=== PATIENT | male | born 1945 | race Caucasian/White ===

== ENCOUNTER 2017-09-12 23:33 | Inpatient (IN) | payer OTHER, BC ==
[~2017-09-12] VITALS: Ht 182.9 cm; Wt 117.2 kg
--- NOTE | ~2017-09-12 | EKG ---
[address] [address] ELECTROCARDIOGRAM REPORT Name: ALYSIAASHOK Room #: 243-P ADM IN M.R.#: [id number] Admission: 09/12/17 Attend Phys: Philippe Brizuela DO Discharge: Date of : 47 Report #: [id number] THIS REPORT FOR: //name// [facility] ED Test Date: 2017-09-13 Test Time: 09:39:55 Pat Name: ASHOK HATFIELD Department: Room: 243 P Gender: M Veterinary Assistant: KAREN : 1945 Requested By: Gilbert Kaplan Order Number: [id number] MD: Gilbert Kaplan Measurements Intervals [place] Rate: 98 P: [place]: QRS: 25 QRSD: 92 T: 109 QT: 350 QTc: 447 Interpretive Statements Atrial fibrillation Probable anteroseptal infarct, old Borderline repolarization abnormality Compared to ECG 01/19/2005 18:23:29 Myocardial infarct finding now present Sinus rhythm no longer present Electronically Signed On 09-14-2017 8:44:23 [employer] by Gilbert Kaplan [email or web address] <ELECTRONICALLY SIGNED> By: Gilbert Kaplan MD, [facility] 09/14/17 0844 Gilbert Kaplan MD, [facility] /EPI
--- NOTE | ~2017-09-12 | 2DMMODE ---
[facility] [place] [address] 2 D/M-MODE ECHOCARDIOGRAM Name: ASHOK HATFIELD Room #: 243-P ADM IN .R.#: [id number] Admission: 09/12/17 Attend Phys: Reese Goodrich MD Discharge: Date of : 47 Date of Service: 09/13/17 1601 Report #: [id number] THIS REPORT FOR: //name// APPROVED REPORT Study performed: 09/13/2017 14:06:43 EXAM: Comprehensive 2D, Doppler, and color-flow Echocardiogram Patient Location: ICU Room #: 243 Status: routine BSA: 2.39 HR: 105 bpm BP: 145/88 mmHg Rhythm: Atrial Fibrillation Other Information Study Quality: Adequate Technically limited study due to body habitus. Indications Short of breath, LA, CHF, elevated troponin. Hx: CAD, stents, Afib Echo Enhancing Agent Indication: Endocardial border delineation Agent(s) / Amount(s) Used: Optison 8 cc 2D Dimensions RVDd: 45.25 mm LVEF(%): 48.89 (>50%) IVSd: 9.99 (7-11mm) LVOT Diam: 22.16 (18-24mm) LVDd: 48.02 mm PWd: 10.44 (7-11mm) LVDs: 36.16 (25-40mm) Aortic Root: 41.64 mm Dolan's LVEF: 48.89 % Volumes Left Atrial Volume (Systole) Single Plane 4CH: 74.61 mL Single Plane 2CH: 117.88 mL LA ESV Index: 47.00 mL/m2 Aortic Valve AoV Peak Efrain.: 1.19 m/s AO Peak Gr.: 5.72 mmHg LVOT Max P.88 mmHg [facility] [place] [address] 2 D/M-MODE ECHOCARDIOGRAM Name: ALYSIAASHOK K Room #: [facility] IN ..#: [id number] Admission: 09/12/17 Attend Phys: Reese Goodrich MD Discharge: Date of : 47 Date of Service: 09/13/17 1601 Report #: [id number] LVOT Max V: 0.68 m/s CIARRA Vmax: 2.20 cm2 Mitral Valve MV Decel. Time: 139.01 ms MV E Max Efrain.: 0.94 m/s Pulmonary Valve PV Peak Efrain.: 1.09 m/s PV Peak Gr.: 4.72 mmHg Tricuspid Valve TR Peak Efrain.: 3.21 m/s RAP Estimate: 15.00 mmHg TR Peak Gr.: 41.28 mmHg PA Pressure: 54.00 mmHg Left Ventricle The left ventricle is normal size. There is normal left ventricular wall thickness. Left ventricular systolic function is mild to moderately decreased. Distal septal and anteroapical hypokinesis LVEF is 40-45%. This study is not technically sufficient to allow evaluation of the LV diastolic function due to atrial fibrillation. Right Ventricle The right ventricular systolic function is normal. Atria Left atrium is moderately dilated. Right atrium is mildly dilated. Aortic Valve The aortic valve is mildly sclerotic. Trace aortic regurgitation. There is no aortic valvular stenosis. Mitral Valve Mitral valve leaflets are mildy calcified. Mild to moderate mitral regurgitation. Tricuspid Valve The tricuspid valve is normal in structure. Mild tricuspid regurgitation. Estimated PAP is 50-55mmHg. Pulmonic Valve The pulmonary valve is normal in structure. There is no pulmonic valvular regurgitation. [facility] [address] [place] [address] 2 D/M-MODE ECHOCARDIOGRAM Name: ASHOK HATFIELD Room #: 243-P [facility] IN ..#: [id number] Admission: 09/12/17 Attend Phys: Reese Goodrich MD Discharge: Date of : 47 Date of Service: 09/13/17 1601 Report #: [id number] Great Vessels Aortic root is mildly dilated. Ascending aorta is not well visualized. IVC is dilated and collapses <50% with inspiration. Pericardium There is no pericardial effusion. <Conclusion> Left ventricular systolic function is mild to moderately decreased. Distal septal and anteroapical hypokinesis LVEF is 40-45%. Left atrium is moderately dilated. The aortic valve is mildly sclerotic. Trace aortic regurgitation, no stenosis. Mitral valve leaflets are mildy calcified. Mild to moderate mitral regurgitation. Mild tricuspid regurgitation. Estimated pulmonary artery pressure of 50-55mmHg. There is no pericardial effusion. <ELECTRONICALLY SIGNED> By: Gilbert Kaplan MD, [facility] 09/13/17 160 160 160 Gilbert Kaplan MD, FACC /INF
--- NOTE | ~2017-09-12 | HC ---
[facility] [place] [address] CONSULTATION Name: ASHOK HATFIELD Room #: 243-P [facility] IN M.R.#: [id number] Admission: 09/12/17 Attend Phys: Philippe Brizuela DO Discharge: Date of : 47 Report #: [id number] THIS REPORT FOR: //name// CC: Reese MOYA REASON FOR CONSULTATION: Elevated troponin. HISTORY OF PRESENT ILLNESS: The patient is a 71-year-old gentleman with a complicated history including rheumatoid arthritis, giant cell arteritis recently diagnosed by temporal artery biopsy, fungal esophagitis, coronary artery disease with myocardial infarction with stenting in 2014, and permanent atrial fibrillation. The patient reports several days of intermittent epigastric pain, which in the past has been attributed to his esophagitis and reflux disease. Yesterday, he had more pronounced episode and was seen at [facility], was transferred to [facility] and then on to [facility]. On presentation, he was found to have atrial fibrillation with a rapid ventricular response in the setting of hypoxemia, requiring BiPAP placement. His initial troponin was minimally elevated at 0.91, although subsequent troponins were elevated at 22.9. He is currently pain free, on BiPAP. He denies recent heart failure symptoms including orthopnea, paroxysmal nocturnal dyspnea, or lower extremity edema. He feels that his volume status is stable. He does have a history of congestive heart failure and uses very low dose diuretic 2 days a week. He has had no symptoms from his permanent atrial fibrillation. No history of near syncope or syncope. ALLERGIES: Include PROCAINAMIDE, QUINIDINE, AMIODARONE, ACETAMINOPHEN, and HYDROCODONE. PAST MEDICAL HISTORY: Notable for steroid-induced diabetes, coronary artery disease with prior myocardial infarction in 2014 with stenting, history of anemia, giant cell arteritis, rheumatoid arthritis, dyslipidemia, hypertension, tonsillectomy, reflux disease, upper endoscopy demonstrating fungal esophagitis, this is on 09/06/2017; osteoarthritis, and prostate cancer with radiation therapy in 2008. SOCIAL HISTORY: He is a former smoker during the [place] War. FAMILY HISTORY: Unremarkable for premature coronary artery disease. REVIEW OF SYSTEMS: All systems negative except as that noted above. PHYSICAL EXAMINATION: GENERAL: Reveals a pleasant gentleman who is mildly dyspneic. VITAL SIGNS: Blood pressure is 145/88, heart rate of 98 and irregular, he is afebrile, 6 feet tall, 162 pounds. [facility] [address] [place] [address] CONSULTATION Name: ASHOK HATFIELD Room #: 243-P [facility] IN [facility]#: [id number] Admission: 09/12/17 Attend Phys: Philippe Brizuela DO Discharge: Date of : 47 Report #: [id number] HEENT: There are neither xanthelasma, subcutaneous xanthomata, oral mucosal or digital cyanosis or kyphoscoliosis present. CHEST: Reveals diminished breath sounds at both bases. CARDIAC: Irregular rate and rhythm with normal S1, S2. No murmurs or rubs. Heart sounds are distant. ABDOMEN: Soft and nontender. EXTREMITIES: Without peripheral edema. NEUROLOGIC: He is alert with a nonfocal exam. LABORATORY DATA: White count 14,000, hemoglobin 13. Sodium 137, potassium 4.4, glucose 320. IMPRESSION: 1. Non-Q-wave myocardial infarction in the setting of hypoxemic respiratory failure. 2. Coronary artery disease with remote myocardial infarction with prior stenting in 2015. 3. Permanent atrial fibrillation. 4. Left lung pneumonia. 5. Fungal esophagitis; reflux disease. 6. Chronic obstructive pulmonary disease, hypoxemic respiratory failure. 7. Giant cell arteritis. 8. Rheumatoid arthritis. RECOMMENDATIONS: 1. Blood and sputum cultures. 2. Pulmonary and ID evaluations. 3. Hold Xarelto for now with use of IV heparin. 4. Obtain records from [facility]. 5. Rate control strategy for atrial fibrillation, which is permanent. 6. Probable coronary angiography at some point. 7. Echocardiogram with Doppler. 63 min cc time [id number] Thank you for asking me to participate in the patient's care. <ELECTRONICALLY SIGNED> By: Gilbert Kaplan MD, [facility] 09/14/17 0816 0820 0853 Gilbert Kaplan MD, FACC /nt
--- NOTE | ~2017-09-12 | HC ---
[facility] [place] [address] CONSULTATION Name: ASHOK HATFIELD Room #: 243-P ADM IN M.R.#: [id number] Admission: 09/13/17 Attend Phys: Philippe Brizuela DO Discharge: Date of : 47 Report #: [id number] THIS REPORT FOR: //name// CC: STEVEN Brizuela DATE OF SERVICE: 09/14/2017 This is a 71-year-old male patient who was seen by me earlier today. This is a log up the things, which has happened since then. I got a CT perfusion and CT angiogram done in this patient. That demonstrated findings suspicious for stroke in this patient. I have tried to talk to this patient multiple times and I am not able to get a good idea when the stroke occurred. I have also had multiple discussions with the nurses looking after this patient. In any event, we did do a CT angiogram and CT angiogram demonstrated that he has a right carotid stenosis and looks like on perfusion images, he had a stroke. I called the patient's admitting physician, Dr. Brizuela and I discussed the patient with him and since then, I have reviewed all his records. This patient appeared to be very unhappy and I am not able to talk to him because he wants to know why the stroke happened suddenly and why does he have a blockage suddenly. I tried to explain to him as much as I could, but he does not look satisfied and initially told me that he wanted to go to another hospital, which I told him that is his right and he can talk to the admitting physician and that I talked to the daughter multiple times. His situation is complicated. It looks like he had MD and he is being worked up for that. He is on heparin and he is fully anticoagulated on heparin with PTT of 51.6. He needs heparin for his MD, but heparin may not be very good for stroke because it can make the stroke hemorrhagic especially if it is a large stroke. He is hypertensive. If he is going to be on heparin, it will be desirable to lower his blood pressure, but lowering the blood pressure significantly will predispose him to further ischemia because of his carotid stenosis. He is fully anticoagulated, so there is a contraindication for giving him TPA and he really does not have anything for which an intervention can be done because he does have a carotid stenosis, which will require intervention later on, but he does not have anything in basilar artery, middle cerebral artery or anterior cerebral artery. I discussed all of it with the patient and I also discussed the limitation of our hospital. I told them that we do not have any neurosurgeon backup in case the patient has any hemorrhage. I told them we do not have any interventional therapist who can be available to do the intervention or evaluate his films. I gave them the option of going to a bigger hospital if they want to. I have ordered a stat MRI in this patient. I suspect the MRI is going to show stroke. It will depend upon the extent of the MRI to determine whether we can continue heparin or not. We have called the MRI team and I have ordered that stat. I am also trying to reach the radiologist to discuss further about this patient. I have asked them to give him some Tylenol for the headache and once he goes to ICU, I will ask [facility] [address] [address] CONSULTATION Name: ASHOK HATFIELD Room #: 243-P [facility] IN M.R.#: [id number] Admission: 09/13/17 Attend Phys: Philippe Harrellhowardwillow, Discharge: Date of : 47 Report #: [id number] them to lower the blood pressure to some extent because he needs some lower blood pressure for his heart, but somewhat higher blood pressure for his brain and we have to find a happy medium and unfortunately he is also very agitated and unhappy and I have tried to explain to him as much as I can, and I explained to his options and other limitations here as much as I can. Thank you very much for this referral and I have spent more than 50 minutes of time taking care of this patient and majority of time has been spent counseling them as well as coordinating his care. <ELECTRONICALLY SIGNED> By: Bryce Guillen MD 09/15/17 1110 2247 0724 Bryce Guillen MD /nt
--- NOTE | ~2017-09-12 | HC ---
[facility] [place] [address] CONSULTATION Name: ASHOK HATFIELD Room #: 243-P [facility] IN M.R.#: [id number] Admission: 09/13/17 Attend Phys: Philippe Brizuela DO Discharge: 09/15/17 Date of : 47 Report #: [id number] THIS REPORT FOR: //name// CC: STEVEN Brizuela DATE OF SERVICE: 09/15/2017 HISTORY OF PRESENT ILLNESS: This is a 71-year-old male patient who was evaluated by me yesterday evening and the notes were dictated. Multiple things had happened since the last note was dictated. Last night, I talked to the radiologist, Dr. Carrasco. I discussed his CT angiogram with them and they did not think there is any lesion for which intervention can be done. Since Dr. Carrasco does not come here to [place], he also got the films reviewed by somebody who is a regular radiologist at [facility] and his opinion was the same. Last night, I also talked to Dr. Brizuela and I talked to Dr. Alas, track equipment operator who is covering for Dr. Kaplan last night. I talked to the [facility] radiologist who interpreted the patient's MRI. This patient completed only small portion of the MRI and refused any further MRI or MRA, which I had ordered. Only small portion of the MRI could be completed, but it did include diffusion weighted images. It demonstrated large CVA in the right occipital area and right thalamus area. It is probably because of embolization. This patient unfortunately did not allow the full evaluation, but he is not a candidate for TPA because he was fully anticoagulated with heparin, he has a history of being on Xarelto, but it is not clear when was the last time he took his dose. He also has headache, which is going on for several months, but he is very uncomfortable. I talked to Dr. Brizuela again this morning. I talked to Dr. Kaplan this morning. Apparently, this is not the patient's baseline personality. Dr. Kaplan also indicated that he is not clear from the history when he took the last dose of Xarelto. This patient continued to complain of headache this morning. His neurological examination is not much different. He is complaining of some nausea, but he is already being seen by GI. This patient has very intractable problems. This patient has ND. On top of that, he has a large CVA. The CVA is probably embolic and these CVA can become hemorrhagic. They can become hemorrhagic spontaneously, but can become more hemorrhagic with anticoagulation. I talked to track equipment operator last night and they wanted to continue heparin and I had mentioned that it is okay to continue heparin and we will just closely watch the patient for any bleeding. I also talked to Dr. Kaplan and also said it is okay to continue heparin in this patient. He also needs intervention. If intervention needs to be done, it can be done. They just need to weigh the benefit and risk. From Dr. Kaplan, it looks like he is going to wait for any intervention at the moment. If there is no bleeding for 72 hours, the risk of hemorrhage into the stroke decreases, but [facility] [address] [place] [address] CONSULTATION Name: ASHOK HATFIELD Room #: 243-P [facility] IN ..#: [id number] Admission: 09/13/17 Attend Phys: Philippe Brizuela, DO Discharge: 09/15/17 Date of : 47 Report #: [id number] it does not get eliminated. This patient was never any intervention candidate because he is not a TPA candidate because of being on anticoagulation, had a recent ND and the time of onset was not clear. Most of the management is going to be by Cardiology at the moment. He is having a lot of headache. I have talked to Dr. Brizuela and he is going to manage the pain by managing his pain medication. I have talked to the daughter multiple times and I have talked to the patient. I have discussed our limitation of the hospital very clearly with them. I told them that if he does have a bleeding, we do not have any neurosurgical backup here and we do not have anybody who does the pain management here. I have given them the option of going to any bigger hospital if they want to where more facilities are available or stroke subspecialist are available because his situation is very complicated. Initially, he wanted to go to some different hospital, but subsequently, they have decided they want to stay here. I have discussed with him the importance of completing the workup, but I do not think he is cooperative at all and sometime even looks confused and I will get an EEG done there. Dr. Gaston will follow up this patient with you tomorrow and I have spent more than 35 minutes of time taking care of this patient and majority of that time has been spent counseling the patient as well as the patient's daughter and in the process, I have talked to multiple physicians. I do not think neurologically much can be done because he has refused further MRI and we will try to see if EEG can be done, but I will defer any anticoagulation which need to be done to Cardiology because stroke appeared to be cardioembolic and the management is going to be done by Cardiology in that regard. Thank you very much and if you have any questions, please feel free to call us. Dr. Gaston will follow up this patient with you tomorrow. <ELECTRONICALLY SIGNED> By: Bryce Guillen MD 09/15/171858 1056 38 Bryce Guillen MD /nt
--- NOTE | ~2017-09-12 | HC ---
[facility] [place] [address] CONSULTATION Name: ASHOK HATFIELD Room #: 243-P ADM IN M.R.#: [id number] Admission: 09/12/17 Attend Phys: Philippe Brizuela DO Discharge: Date of : 47 Report #: [id number] THIS REPORT FOR: //name// CC: Reese MOYA REASON FOR CONSULTATION: I was asked to evaluate concerning pneumonia, myocardial infarction, in the setting of immunosuppression for giant cell arteritis. HISTORY OF PRESENT ILLNESS: The patient was a 71-year-old diagnosed with giant cell arteritis, complicating rheumatoid arthritis in May. For this, he was placed on high dose corticosteroids. He developed delirium while on this and this was tapered down over the ensuing several months. He did get down to about 10 mg a day. Most recently it is back up to 40 mg a day. For about past several weeks he has had more shortness of breath and malaise. Acute worsening yesterday, presented to the Emergency Room in atrial fibrillation with rapid ventricular response. This is a known issue for him. He has been on anticoagulation and has had 2 cardiac ablations. He then developed chest pain. Found to have acute myocardial infarction. He was then transferred to [facility] for further evaluation. In addition, he has had issues with reflux and esophagitis that was biopsy proven Cecelia. He has been nystatin for treatment. On presentation, he had evidence of left lower lobe pneumonia. He has had cough with minimal sputum production. No fever, chills or sweats. No travel. No nausea, vomiting or diarrhea. PAST MEDICAL HISTORY: Coronary artery disease, congestive heart failure, hypertension, atrial fibrillation, anemia, gastroesophageal reflux, prostate cancer, rheumatoid arthritis, degenerative arthritis, giant cell arteritis, cardiac ablation, coronary stents, temporal artery biopsy, bilateral carpal tunnel release, elbow surgery, recent EGD. ALLERGIES: PROCAINAMIDE, CLONIDINE, AMIODARONE, HYDROCODONE, TYLENOL. MEDICATIONS: As noted on his MAR including 40 mg of prednisone, sulfasalazine, now on vancomycin, ceftriaxone, azithromycin. FAMILY HISTORY: Noncontributory. SOCIAL HISTORY: Past smoker, retired from maintenance work, previous alcohol use and tobacco use, now stopped. REVIEW OF SYSTEMS: As noted above with no additions. PHYSICAL EXAMINATION: VITAL SIGNS: Afebrile and hemodynamically stable. He was tachycardic at 106, MAP of 108. [address] [address] CONSULTATION Name: ASHOK HATFIELD Room #: 243-P [facility] IN ..#: [id number] Admission: 09/12/17 Attend Phys: Philippe Brizuela DO Discharge: Date of : 47 Report #: [id number] GENERAL: He was on BiPAP, but alert and conversant. Obese, mildly. HEENT: Unremarkable. No thrush. NECK: Supple. LUNGS: Decreased breath sounds anteriorly. Coarse left lower lobe posteriorly. HEART: Tachycardic and regular. ABDOMEN: Soft, nontender, no hepatosplenomegaly or mass. EXTREMITIES: Unremarkable. LABORATORY DATA: Sodium 137, potassium 4.8, bicarbonate 24, creatinine 1.1. Hemoglobin 11.9, white count 14.5, platelet count 215,000, 86% segs, 6% lymphs. Influenza antigen negative. Troponin 22.9. Chest x-ray, left lower lobe infiltrate. He had some atelectasis and small effusion on the right. IMPRESSION: A 71-year-old with immunosuppression, on prednisone for giant cell arteritis, presents with acute myocardial infarction and left lower lobe pneumonia. Etiology of his pneumonia is yet still indeterminate. We will screen for viral respiratory panel and continue coverage for both typical and atypical organisms. He will be evaluated further by Cardiology to assist in his workup of his cardiac ischemia. It is noted that his echocardiogram shows an ejection fraction of 40-45% with mild to moderate mitral regurgitation, and electrocardiogram showed atrial fibrillation and an old anteroseptal infarct, possible myocardial infarction findings now present compared to his previous electrocardiogram of 2004. <ELECTRONICALLY SIGNED> By: Hebert Cooley MD 09/14/17 1102 1718 1830 Hebert Cooley MD /nt
--- NOTE | ~2017-09-12 | H ---
[facility] [place] [address] HISTORY AND PHYSICAL Name: ASHOK HATFIELD Room #: 243-P ADM IN M.R.#: [id number] Admission: 09/12/17 Attend Phys: Philippe Brizuela DO Discharge: Date of : 47 Report #: [id number] THIS REPORT FOR: //name// CC: Reese HAYES unknown DATE OF SERVICE: 09/13/2017 ATTENDING PHYSICIAN: Dr. Goodrich. PRIMARY CARE PHYSICIAN: At [place] in [place], [place]. CHIEF COMPLAINT: Shortness of breath and chest pain. HISTORY OF PRESENT ILLNESS: The patient is a 71-year-old male who presented to [facility] with the above complaints. He says he has not felt well for the last 3 weeks, but in the last 3 days, he has had increasing shortness of breath. This evening, he had acute worsening of his shortness of breath to the point, he called EMS. When they arrived, his oxygen saturations were in the 70s. He has never required oxygen at home. He also had a heart rate of 156 and a blood pressure of 180/114. He was taken to the ER in [facility], where he was noted to be in atrial fibrillation with RVR. He does have known AFib, for which he takes metoprolol and Cardizem and is on Xarelto for anticoagulation. He has had 2 cardiac ablations in the past. 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 as well. He said he also had developed chest tightness this evening with the shortness of breath. He was given aspirin and nitro per EMS and in the ER at [facility], he was given a Cardizem bolus and started on Cardizem drip. He was also given Lasix and was placed on BiPAP. He was being given morphine and nitro paste, as well as a dose of cefepime. He has had cough, but says it has been nonproductive. Denies any recent fever. He did feel like his heart was racing or pounding initially. He was transferred here since there was no bed availability in any [facility]. He also reports that he had a recent EGD, which did show some yeast in his esophagus, for which he had been on nystatin. He reports that biopsies were taken and did not show any sort of malignancy. He has had coronary artery disease and has had a total of 3 stents [address] [facility], he was also noted to have an elevated troponin up to 3.07 after his initial one was 0.09. He arrived to [facility], on BiPAP and his heart rate had improved with the Cardizem drip. He said he did void multiple times prior to transfer. PAST MEDICAL HISTORY: Atrial fibrillation, hypertension, coronary artery disease, congestive heart failure with unknown EF, anemia, GERD, prostate cancer, giant cell arteritis, and rheumatoid arthritis with osteoarthritis. PAST SURGICAL HISTORY: Cardiac ablation x 2, coronary stent x 3, temporal artery biopsy, bilateral carpal tunnel release, elbow repair, and recent EGD. [facility] [address] [place] [address] HISTORY AND PHYSICAL Name: ALYSIAASHOK K Room #: 243-P [facility] IN ..#: [id number] Admission: 09/12/17 Attend Phys: Philippe Brizuela DO Discharge: Date of : 47 Report #: [id number] ALLERGIES: PROCAINAMIDE, QUINIDINE, AMIODARONE, HYDROCODONE AND ACETAMINOPHEN. HOME MEDICATIONS: Sulfasalazine 500 mg p.o. b.i.d., Flomax 0.8 mg p.o. daily, Xarelto at 10 mg p.o. at bedtime, Imdur 30 mg p.o. daily, metoprolol 25 mg p.o. b.i.d., diltiazem 180 mg p.o. daily, Lisinopril 2.5 mg p.o. daily, aspirin 81 mg p.o. daily, ibuprofen 800 mg p.o. daily, Lasix 20 mg p.o. every other day, prednisone 40 mg p.o. daily. SOCIAL HISTORY: The patient has a remote history of smoking. He quit about 50 years ago after smoking when he was in the in [place]. He is single. He lives alone. He is retired. He ambulates independently. He denies any alcohol use for the last year, prior to that he said he did drink heavily. Denies any drug use. FAMILY HISTORY: His grandfather had heart disease and in his 50s. His mother of breast cancer at the age of 62. His father at the age of 44 from an alcohol intoxification. REVIEW OF SYSTEMS: The patient is on chronic steroids, he states for his rheumatoid arthritis, but mainly for giant cell arteritis that was diagnosed off of a temporal artery biopsy and all other 12-point review of systems was reviewed with the patient, otherwise negative unless stated in the HPI. PHYSICAL EXAMINATION: GENERAL: The patient is an alert male, in no acute distress. VITAL SIGNS: Temperature is 36.6, heart rate 119, respirations 20, blood pressure 149/80 and oxygen is 98% on BiPAP. HEENT: PERRLA. Sclerae is nonicteric. Oral mucosa is pink and moist. NECK: Supple, no JVD noted. CARDIAC: Heart rate is tachycardia and irregular. No murmurs. RESPIRATORY: Breath sounds are clear and diminished throughout. Breathing is nonlabored with BiPAP. ABDOMEN: Obese, round, soft, nontender, nondistended with positive bowel sounds. VASCULAR: No edema noted. He does have some brownish discoloration in both lower extremities and his feet are cold. SKIN: Intact without any lesions or rashes. He is pale. NEUROLOGIC: The patient is alert and oriented x 3. He is answering questions appropriately and following commands. No focal neuro deficits noted. LABORATORIES AND DIAGNOSTICS: Lab and diagnostic done at [facility]. WBC 14.3, hemoglobin 13.1 and platelets 302. Sodium 137, potassium 4.4, BUN 20, creatinine 0.9, glucose of 320, magnesium 2.3. LFTs within normal limits. Troponin is 3.07. BNP 352. Chest x-ray showed pulmonary vascular congestion and congestive heart failure and an EKG showed atrial fibrillation with RVR, [facility] [address] [place] [address] HISTORY AND PHYSICAL Name: ASHOK HATFIELD Room #: 243-P [facility] IN ..#: [id number] Admission: 09/12/17 Attend Phys: Philippe Brizuela DO Discharge: Date of : 46 Report #: [id number] rate of 152. ASSESSMENT AND PLAN: 1. Non-ST elevation myocardial infarction. His current troponin is now up to 22.89, we will start a heparin drip after a heparin bolus and consult Cardiology. 2. Atrial fibrillation with rapid ventricular response. Continue titrate Cardizem drip for rate control. Resume home dose of metoprolol. Xarelto will be held since he will be on a heparin drip. 3. Exqnp-od-iiwrmba congestive heart failure. Ejection fraction is unknown, but he is on Lasix at home, check an echo in the morning and we will hold off on any further IV diuresis with Lasix since his breathing has improved. We will follow up with a chest x-ray in the morning. 4. Rheumatoid arthritis and giant cell arteritis with chronic steroid use. Continue with prednisone daily. 5. Hypertension. Continue home medications and monitor. 6. Hyperglycemia. The patient denies any history of diabetes. We will check hemoglobin A1c. 7. Deep venous thrombosis prophylaxis. Continue heparin drip. 8. Code status: The patient is a full code. We will continue to follow the patient closely throughout the hospitalization and make changes based on clinical status. <ELECTRONICALLY SIGNED> By: DIANA Uribe 09/14/17 0757 [id number] 0658 DIANA Uribe /jenelle
--- NOTE | ~2017-09-12 | HC ---
[facility] [place] [address] [place] [address] CONSULTATION Name: ASHOK HATFIELD Room #: 243-P [facility] IN M.R.#: [id number] Admission: 09/13/17 Attend Phys: Philippe Brizuela DO Discharge: 09/15/17 Date of : 46 Report #: [id number] THIS REPORT FOR: //name// CC: Reese Kaplan MD [facility] STEVEN BELENJOSE DATE OF SERVICE: 09/13/2017 REFERRING PROVIDER: Reese Goodrich MD REASON FOR CONSULTATION: Pneumonia and shortness of breath. HISTORY OF PRESENT ILLNESS: Our group was asked to see the patient in consultation while hospitalized at [facility]. A 71-year-old male with a past pulmonary history of probable COPD. The patient is on Symbicort he states for shortness of breath without any improvement. He has had a several month history of workup for what it sounds like autoimmune diseases including sounds like a biopsy proven temporal arteritis, possibly rheumatoid arthritis as well as candidal esophagitis complicated by significant odynophagia in the central chest. The patient noted yesterday increasing symptoms of shortness of breath, perhaps some cough and some chest pains related to the sternum, was getting more severe, was found to be hypoxic by emergency medical services, was placed on noninvasive positive pressure ventilation with BiPAP. Subsequently in the local emergency room, the patient was noted to have non-ST elevation WA. The patient was transferred here for further management overnight. Chest radiograph showed left upper and right lower lung infiltrates and did confirm the patient's elevated troponins, most recently 22.89. Currently, he is not having any pain, but when he takes off the noninvasive ventilation with the BiPAP, within an hour he states he develops again chest pain. Some minor cough. Denies any fevers, chills, or sweats. No recent travel. Lives alone. ALLERGIES: Include DIGOXIN and AMIODARONE. PAST MEDICAL HISTORY: 1. History of coronary artery disease, status post multiple stent placements, he states 3 years ago. 2. History of autoimmune disease like a giant cell arteritis/rheumatoid arthritis. 3. 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 4. Chronic steroid use. 5. Hypertension. 6. Hyperlipidemia. 7. Recent endoscopy showing candidal esophagitis. [address] [address] CONSULTATION Name: ASHOK HATFIELD Lala Room #: 243-P [facility].#: [id number] Admission: 09/13/17 Attend Phys: Philippe Brizuela DO Discharge: 09/15/17 Date of : 46 Report #: [id number] 8. Esophageal reflux. 9. Atrial fibrillation. 10. Osteoarthritis. 11. Prostate cancer with radiation therapy. 12. Obstructive lung disease, unclear severity. SOCIAL HISTORY: The patient is an ex-smoker, he states quitting about 50 years ago. 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 FAMILY HISTORY: Negative for any significant pulmonary disease. REVIEW OF SYSTEMS: CONSTITUTIONAL: No fever, chills, or sweats, change in weight or appetite. ENT: No upper respiratory congestion or rhinorrhea. CARDIOVASCULAR: As described. GASTROINTESTINAL: As described in HPI. GENITOURINARY: No dysuria, no frequency or hematuria. INTEGUMENT: Denies any rash. MUSCULOSKELETAL: Some increased edema. PHYSICAL EXAMINATION: VITAL SIGNS: He is afebrile, pulse 100 and irregular, respiratory rate in the 20s, and blood pressure 153/92. GENERAL: This is an obese elderly male, able to speak in full sentences on the BiPAP. NECK: Thick, supple, no lymphadenopathy. LUNGS: Bronchial breath sounds noted in bilateral bases. No wheezes. HEART: Irregular and tachycardic. No murmur. ABDOMEN: Obese, soft, nontender, no masses. EXTREMITIES: With chronic venous stasis changes in lower extremities with 1+ edema. LABORATORY DATA: White blood cell count was 14,000, hemoglobin 13, hematocrit 42, and platelet count 260. No differential performed. Sodium is 137, potassium 4.8, chloride 101, bicarbonate 24, BUN 27, creatinine 1.1, glucose 130. Arterial blood gas is pending. INR is 1.0. IMPRESSION: 1. Multilobar pneumonia as evidenced on chest x-ray with left upper and right lower lobe infiltrates and exam. 2. Acute hypoxemic respiratory failure. 3. Non-ST elevation myocardial infarction with underlying known coronary artery disease. 4. Atrial fibrillation with rapid ventricular response. 5. Pulmonary edema. [facility] [address] [place] [address] CONSULTATION Name: ASHOK HATFIELD Room #: 243-P DIS IN M.R.#: [id number] Admission: 09/13/17 Attend Phys: Philippe Brizuela DO Discharge: 09/15/17 Date of : 46 Report #: [id number] 6. History of chronic steroid use, currently on systemic steroids. 7. History of autoimmune disease with multiple diagnoses reported by the patient. 8. Diabetes mellitus. SUGGEST: 1. ICU care. 2. Attempt to remove noninvasive positive pressure ventilation as tolerated. 3. Continue with systemic steroids. 4. Frequent bronchodilators. 5. Sputum and blood cultures. 6. Urinary pneumococcal legionella antigen test. 7. Broad-spectrum antimicrobials to include coverage for Staph and influenza. 8. Nasal swab for respiratory viral panel. Rapid flu screen noted to be negative. 9. Infectious disease consult regarding pulmonary infiltrates in immunocompromised host. 10. Consider bronchoscopy if not improving. 11. GI consultation regarding ongoing odynophagia. 12. Discussed at length with the patient and son at the bedside as well as nursing. Total critical care time 45 minutes, not including any procedures. <ELECTRONICALLY SIGNED> By: Ramon Rodriguez MD 09/28/17 1825 [id number] 1542 Ramon Rodriguez MD /nt
--- NOTE | ~2017-09-12 | HC ---
[facility] [place] [address] CONSULTATION Name: ASHOK HATFIELD Room #: 243-P ADM IN M.R.#: [id number] Admission: 09/13/17 Attend Phys: Philippe Brizuela DO Discharge: Date of : 46 Report #: [id number] THIS REPORT FOR: //name// CC: STEVEN GRIFFIN Philippe Brizuela DATE OF SERVICE: 09/14/2017 HISTORY OF PRESENT ILLNESS: This is a 71-year-old male patient for whom a stat consultation was requested to evaluate this patient for what looks like numbness and weakness on the left side. It is not clear what the duration of these symptoms are. Nurses think it is about 2 hours duration, he thinks it is little more than 1-1/2 hour duration. Exact time of onset is not very clear and the symptoms are also poorly defined. He thinks his left hand looks somewhat heavier. He does not know where the left hand is. Symptoms did come in suddenly. This patient was admitted with FL and he is fully anticoagulated at the moment. His last PTT was done at 4:10 and it was 51.6. It looks like he was on Xarelto also some time, but the history is not clear in that regard. He was in ICU and he was just transferred back from ICU. His symptoms are severe. REVIEW OF SYSTEMS: Pretty extensive. He indicates that he is having severe headache, which is about 3-4 months' duration. He says that typically he goes to [place] at [place], [place] for his care and did a temporal artery biopsy at that time and that is the time he is having headache. He also has rheumatoid arthritis as per history. His troponin is high and he was scheduled for a catheterization. He does have a high blood sugar and he is on prednisone. It looks like he is also seeing ID for the pneumonia. During this admission, he has seen multiple consultants and looks like he also had hypoxemia and atrial fibrillation and one of the Pulmonary indicates that he also has pulmonary edema. He was in ICU. He tells me he is not allergic to any dye. This is a relevant 14-point review of system. PAST MEDICAL HISTORY: Negative for stroke according to him, but is positive for headache which is several months' duration. FAMILY HISTORY: Negative for any early age stroke. SOCIAL HISTORY: He says he does not drink any alcohol and he has not smoked for a long time. PHYSICAL EXAMINATION: Difficult. He is complaining of a lot of headache, which is generalized. I tried to do a full cranial nerve examination on him. He indicates that he cannot see very well in the left visual field, especially in the left eye in the temporal area. It is difficult to tell how much is new and how much is old. I cannot tell about the facial palsy. He can move the left upper extremity, but he says it feels different. His right lower extremity [address] [address] CONSULTATION Name: ASHOK HATFIELD Room #: 243-P ADM IN M.R.#: [id number] Admission: 09/13/17 Attend Phys: Philippe Brizuela DO Discharge: Date of : 46 Report #: [id number] feels different. He says touch feel different. Position stance is difficult to appreciate in the left upper extremity. His heart rate is irregular consistent with atrial fibrillation. His blood pressure is somewhat high at 179 109. His respiration is 18, pulse is 104, temperature is 97.8. LABORATORY DATA: He did have a CT scan of the head done and it showed no acute process. His white count is 10.5 and sodium is normal and his GFR is 83. IMPRESSION AND PLAN: This patient presented with symptoms, which can be suggestive of cerebrovascular accident. The symptoms are pretty difficult to evaluate because of above and because of chronic problems going on for some time, but he should be emergently evaluated for the CVA. He is not a tPA candidate because he is fully anticoagulated. He also had a recent FL. If some thrombus can be found, then the case can be made to transfer him and do the thrombectomy. I discussed that situation with him and I think the fastest way of getting that evaluated is by doing CT angio and perfusion. I called the electrical test technician and we have difficult time putting the orders in the computer and I told her to do CT angio of the head and neck and also do the perfusion at the same time. We will see what the results show. If it shows a thrombus then doing a thrombectomy will be warranted. If it does not show any thrombus, nurses will do a bedside swallow and he really wants to eat something and we might give him some clear liquids at that time, but first we need to go for CT angio. We also may have to do the MRI in this patient depending upon what CT angio shows: All of it was discussed with the patient in great detail and he is agreeable with this plan. Thank you very much for this referral. <ELECTRONICALLY SIGNED> By: Bryce Guillen MD 09/15/17 1113 06 0663 Bryce Guillen MD /nt
--- NOTE | ~2017-09-12 | P ---
[facility] [place] [address] [place] [address] PROCEDURE REPORT Name: ASHOK HATFIELD Room #: 200-I ADM IN M.R.#: [id number] Admission: 09/13/17 Attend Phys: Philippe Brizuela DO Discharge: Date of : 47 Report #: [id number] THIS REPORT FOR: //name// CC: Gilbert Kaplan MD [facility] Hebert Leung MD DATE OF SERVICE: 09/14/2017 PROCEDURE: Diagnostic EGD. The patient of Dr. Ar Brizuela. INDICATION FOR PROCEDURE: This patient has been having some esophageal difficulties including an esophageal ulcer. The etiology is unclear. He plans to go for a cardiac catheterization that may involve stent placement and antiplatelet therapy tomorrow. We want to be certain we are not dealing with something that might bleed acutely in the face of antiplatelet drugs. Informed consent for this procedure was obtained prior to the administration of any medication. The risks of the procedure, which include bleeding, perforation, infection, complications of sedation and the possibility I could miss something have been explained to the patient and he has indicated his consent by signing. DESCRIPTION OF PROCEDURE: Propofol was slowly titrated before and during this procedure for patient comfort by the Anesthesia Service. The [employer] upper videoscope was introduced through the upper esophageal sphincter and advanced under direct visualization to the third portion of the duodenum. Findings noted at withdrawal of the scope. The entire duodenal mucosa appears normal. I did not see any source of bleeding in the duodenum. Pylorus, normal mucosa. Antrum, there are some tiny erosions in the antrum, there are some brownish flecks of old blood rarely seen throughout the entire stomach. There are few erosions in the body of the stomach. Cardia and fundus, normal mucosa. Retroflexed view did not reveal any hiatal hernia. Scope was withdrawn into the esophagus. There is a tiny erosion at the Z line in the distal part of the esophagus just above the gastric folds. It is nonbleeding. The entire esophageal mucosa appears normal. The scope was withdrawn. The patient went to the recovery area in stable condition. He tolerated the procedure well. IMPRESSION: Tiny erosions seen in the stomach and one at the Z line in the distal esophagus. These are probably the source of some very insignificant appearing coffee-ground material in the patient's stomach that is quite scarce. [address] [address] PROCEDURE REPORT Name: ASHOK HATFIELD Lala Room #: 200-I [facility] IN ..#: [id number] Admission: 09/13/17 Attend Phys: Philippe Brizuela DO Discharge: Date of : 47 Report #: [id number] My recommendations were for him to continue on the proton pump inhibitors. We will add a Carafate slurry 1 gram p.o. a.c. and at bedtime. We will start him on a soft diet. Thank you very much once again for allowing me to participate in his care, Dr. Brizuela and Dr. Kaplan. <ELECTRONICALLY SIGNED> By: Kalyani Mcnamara DO 09/14/172019 1314 1853 Kalyani Mcnamara DO /nt
--- NOTE | ~2017-09-12 | EKG ---
[address] [address] ELECTROCARDIOGRAM REPORT Name: ASHOK HATFIELD Room #: 200-I ADM IN M.R.#: [id number] Admission: 09/13/17 Attend Phys: Philippe Brizuela DO Discharge: Date of : 47 Report #: [id number] THIS REPORT FOR: //name// [facility] Test Date: 2017-09-14 Test Time: 17:20:28 Pat Name: ASHOK HATFIELD Department: Room: 200 I Gender: M Chief Controller Center: Ravi HERNANDEZ : 1945 Requested By: Reese Goodrich Order Number: [id number] MD: Derek Thomas Measurements Intervals [place] Rate: 112 P: IA: QRS: 5 QRSD: 97 T: 153 QT: 349 QTc: 477 Interpretive Statements Atrial fibrillation Inferior infarct, old Repol abnrm, severe global ischemia (LM/MVD) Compared to ECG 09/13/2017 09:39:55 Possible ischemia now present Myocardial infarct finding still present Electronically Signed On 09-14-2017 23:07:57 [employer] by Derek Thomas [email or web address] <ELECTRONICALLY SIGNED> By: Derek Thomas MD 09/14/17 2307 1720 1720 Derek Thomas MD /EPI
--- NOTE | ~2017-09-12 | EKG ---
[address] [address] ELECTROCARDIOGRAM REPORT Name: ALYSIAASHOK K Room #: 243-P ADM IN M.R.#: [id number] Admission: 09/12/17 Attend Phys: Reese Goodrich MD Discharge: Date of : 47 Report #: [id number] THIS REPORT FOR: //name// [facility] ED Test Date: 2017-09-13 Test Time: 09:39:55 Pat Name: ASHOK HATFIELD Department: Room: 243 Gender: M Core Carrier: [facility] : 1945 Requested By: Nella Koenig Order Number: [id number] MD: Eron Rothman Measurements Intervals [place] Rate: 98 P: [place]: QRS: 25 QRSD: 92 T: 109 QT: 350 QTc: 447 Interpretive Statements Atrial fibrillation Possible anteroseptal infarct, old Borderline repolarization abnormality Compared to ECG 01/19/2005 18:23:29 Possible Myocardial infarct finding now present Sinus rhythm no longer present First degree AV block no longer present Electronically Signed On 09-13-2017 16:40:02 [employer] by Eron Rothman [email or web address] <ELECTRONICALLY SIGNED> By: Eron Rothman MD, FACC 09/13/17 1640 8 8 Eron Rothman MD, [facility] /EPI
[2017-09-13] VITALS (41 sets, daily range): BP systolic 41–179; BP diastolic 11–118
[2017-09-13] MEDS ORDERED: CARDIZEM CD180 MG PO (00:39)
[2017-09-13] MEDS ORDERED: ASPIR 8181 MG PO (00:39)
[2017-09-13] MEDS ORDERED: IBUPROFEN 800800 M1 PO (00:40)
[2017-09-13] MEDS ORDERED: FLOMAX0.4 MG PO (00:41)
[2017-09-13] MEDS ORDERED: AZULFIDINE500 MG PO (00:41)
[2017-09-13] MEDS ORDERED: LASIX 20 MG TAB20 MG PO (00:44)
[2017-09-13] MEDS ORDERED: IMDUR 30 MG TAB30 M1 PO (00:44)
[2017-09-13] MEDS ORDERED: LOPRESSOR50 PO (00:45)
[2017-09-13] MEDS ORDERED: LISINOPRIL2.5 MG PO (00:45)
[2017-09-13] MEDS ORDERED: XARELTO10 MG PO (00:46)
[2017-09-13] MEDS ORDERED: PREDNISONE 20 M20 MG PO (00:47)
[2017-09-13 02:01] LABS: HEMATOCRIT 41.5 % (42.0-52.0); HEMOGLOBIN 13.4 gm/dL (14.0-18.0); MCH 26.3 pg (26.0-34.0); MCHC 32.3 g/dL (28.0-37.0); MCV 81.5 fL (80.0-100.0); RBC 5.1 mil/uL (4.50-6.00); RDW 19.6 % (10.5-14.5); WBC 14.4 thou/uL (4.0-11.0)
[2017-09-13 02:15] LABS: APTT 25.2 Seconds (24.5-32.8); PROTIME 10.1 Seconds (9.3-11.4)
[2017-09-13 02:19] LABS: CHOLESTEROL 150 mg/dL (<200); HDL CHOLESTEROL 63 mg/dL (>40); LDL CHOLESTEROL 75 mg/dL (<100); TC:HDL 2.4 Ratio (Not establshd); TRIGLYCERIDE 64 mg/dL (<150); VLDL 13 mg/dL (<40)
[2017-09-13 02:22] LABS: SERUM ASSESSMENT Clear
[2017-09-13 02:23] LABS: TROPONIN-I 22.89 ng/mL (<0.06)
[2017-09-13 08:26] LABS: CALCIUM 9.1 mg/dL (8.5-10.1); CREATININE 1.1 mg/dL (0.7-1.3); POTASSIUM 4.8 mmol/L (3.5-5.1)
[2017-09-13 08:27] LABS: MAGNESIUM 1.9 mg/dL (1.8-2.4)
[2017-09-13 16:39] LABS: BASOPHILS 0.3 % (0.0-2.0); EOSINOPHILS 0.1 % (0.0-3.0); HEMOGLOBIN 11.9 gm/dL (14.0-18.0)
[2017-09-13 16:41] LABS: ABSOLUTE NEUTROPHILS 12.6 thou/uL (1.4-8.2); HEMATOCRIT 36.7 % (42.0-52.0); LYMPHOCYTES 6.2 % (24.0-44.0); MCH 26.3 pg (26.0-34.0); MCHC 32.3 g/dL (28.0-37.0); MCV 81.3 fL (80.0-100.0); MONOCYTES 6.7 % (1.0-8.0); PLATELET COUNT 215 thou/uL (150-400); POLYS 86.7 % (36.0-66.0); RBC 4.51 mil/uL (4.50-6.00); RDW 20.1 % (10.5-14.5); WBC 14.5 thou/uL (4.0-11.0)
[2017-09-14] VITALS (18 sets, daily range): BP systolic 103–189; BP diastolic 56–109
[2017-09-14 03:11] LABS: GLYCOHEMOGLOBIN (HGB A1C) 5.8 % (4.8-5.6)
[2017-09-14 04:30] LABS: CALCIUM 8.4 mg/dL (8.5-10.1); CREATININE 0.9 mg/dL (0.7-1.3); POTASSIUM 4.3 mmol/L (3.5-5.1)
[2017-09-14 04:36] LABS: HEMOGLOBIN 10.8 gm/dL (14.0-18.0); MCH 26.7 pg (26.0-34.0); MCHC 32.6 g/dL (28.0-37.0); RBC 4.03 mil/uL (4.50-6.00); RDW 20.2 % (10.5-14.5); WBC 10.5 thou/uL (4.0-11.0)
[2017-09-15] VITALS (32 sets, daily range): BP systolic 133–229; BP diastolic 72–179
[2017-09-15 05:33] LABS: ABSOLUTE NEUTROPHILS 11.1 thou/uL (1.4-8.2); BASOPHILS 0.1 % (0.0-2.0); HEMATOCRIT 35.5 % (42.0-52.0); HEMOGLOBIN 11.4 gm/dL (14.0-18.0); LYMPHOCYTES 5.8 % (24.0-44.0); MCH 26.3 pg (26.0-34.0); MCHC 32.1 g/dL (28.0-37.0); MCV 81.8 fL (80.0-100.0); MONOCYTES 5.7 % (1.0-8.0); PLATELET COUNT 219 thou/uL (150-400); POLYS 88.4 % (36.0-66.0); RBC 4.33 mil/uL (4.50-6.00); RDW 19.3 % (10.5-14.5); WBC 12.5 thou/uL (4.0-11.0)
[2017-09-15 05:40] LABS: CALCIUM 8.6 mg/dL (8.5-10.1); CREATININE 0.8 mg/dL (0.7-1.3); POTASSIUM 4.4 mmol/L (3.5-5.1)
[2017-09-16 03:15] LABS: ADENOVIRUS Negative (Negative); INFLUENZA A Negative (Negative); INFLUENZA B Negative (Negative); METAPNEUMOVIRUS Negative (Negative); PARAINFLUENZA 1 Negative (Negative); PARAINFLUENZA 2 Negative (Negative); PARAINFLUENZA 3 Negative (Negative); RHINOVIRUS Negative (Negative); RSV A Negative (Negative); RSV B Negative (Negative)
== END 2017-09-15 12:36 | disposition short-term general hospital (02) | DRG 208 ==
LOC: EROBS 23:33 → ICU 23:39 → EROBS 09-13 00:37 → ICU 09-13 11:52 → EROBS 09-13 11:52 → 2N 09-14 15:53 → ICU 09-15 02:40
PROVIDERS: Family Medicine; Internal Medicine; Internal Medicine Pulmonary Disease; Nurse Practitioner Acute Care
PROC: 5A09357 Assistance with Respiratory Ventilation, Less than 24 Consecutive Hours, Continuous Positive Airway Pressure (ICD-10-PCS; principal; 2017-09-13)
PROC: 0DJ08ZZ Inspection of Upper Intestinal Tract, Via Natural or Artificial Opening Endoscopic (ICD-10-PCS; 2017-09-14)
PROC: 05HB33Z Insertion of Infusion Device into Right Basilic Vein, Percutaneous Approach (ICD-10-PCS; 2017-09-14)
PROC: 5A09357 Assistance with Respiratory Ventilation, Less than 24 Consecutive Hours, Continuous Positive Airway Pressure (ICD-10-PCS; 2017-09-14)
PROC: 5A1935Z Respiratory Ventilation, Less than 24 Consecutive Hours (ICD-10-PCS; 2017-09-15)
PROC: 5A09357 Assistance with Respiratory Ventilation, Less than 24 Consecutive Hours, Continuous Positive Airway Pressure (ICD-10-PCS; 2017-09-15)
DX: J96.01 Acute respiratory failure with hypoxia (principal); I21.4 Non-ST elevation (NSTEMI) myocardial infarction; I50.43 Acute on chronic combined systolic (congestive) and diastolic (congestive) heart failure; J18.1 Lobar pneumonia, unspecified organism; B37.81 Candidal esophagitis; D68.59 Other primary thrombophilia; I62.9 Nontraumatic intracranial hemorrhage, unspecified; I25.10 Atherosclerotic heart disease of native coronary artery without angina pectoris; D53.9 Nutritional anemia, unspecified; M35.9 Systemic involvement of connective tissue, unspecified; G47.33 Obstructive sleep apnea (adult) (pediatric); F41.9 Anxiety disorder, unspecified; E11.65 Type 2 diabetes mellitus with hyperglycemia; E78.5 Hyperlipidemia, unspecified; I48.2 Chronic atrial fibrillation; K21.9 Gastro-esophageal reflux disease without esophagitis; M31.6 Other giant cell arteritis; M06.9 Rheumatoid arthritis, unspecified; I11.0 Hypertensive heart disease with heart failure; M19.90 Unspecified osteoarthritis, unspecified site; Z85.46 Personal history of malignant neoplasm of prostate; Z79.82 Long term (current) use of aspirin; Z92.3 Personal history of irradiation; Z88.6 Allergy status to analgesic agent; Z88.8 Allergy status to other drugs, medicaments and biological substances; I25.2 Old myocardial infarction; Z95.5 Presence of coronary angioplasty implant and graft; Z87.891 Personal history of nicotine dependence; Z79.52 Long term (current) use of systemic steroids; Z82.49 Family history of ischemic heart disease and other diseases of the circulatory system; Z80.3 Family history of malignant neoplasm of breast; Z81.1 Family history of alcohol abuse and dependence; Z79.899 Other long term (current) drug therapy
CPT/HCPCS: 10078; 10081; 27000; 62110; 62900